=== PATIENT | male | born 1975 | race Caucasian/White ===

== ENCOUNTER 2017-11-02 16:00 | Outpatient (RCR) | payer OTHER | END 2017-11-02 16:30 | disposition still patient (30) | LOC: PT 16:00 | DX: M25.511 Pain in right shoulder (principal); G89.29 Other chronic pain ==

== ENCOUNTER 2022-03-11 12:52 | Outpatient (RCR) | payer OTHER | END 2022-03-29 | disposition home or self-care (01) | LOC: PT | DX: M25.519 Pain in unspecified shoulder (principal) ==

== ENCOUNTER 2022-03-31 07:51 | Outpatient (RCR) | payer OTHER | END 2022-04-28 15:44 | disposition home or self-care (01) | LOC: PT 07:51 | DX: M25.519 Pain in unspecified shoulder (principal) ==